=== PATIENT | male | born 1990 | race African-American/Black ===

== ENCOUNTER 2020-01-18 13:53 | Emergency (ER) | payer OTHER ==
[~2020-01-18] VITALS: Ht 182.9 cm; Wt 85.0 kg
[2020-01-18 14:11] VITALS: BP 137/89
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
--- NOTE | 2020-01-18 14:54 | RAD ---
Three-view left shoulder dated 01/18/2020. No comparison available. CLINICAL INDICATION: Pain after injury. Findin views left shoulder show normal bony alignment. No displaced fracture. No acute osseous or articular abnormality. No periostitis or bone destruction. IMPRESSION: No acute findings. Electronically signed by: Telly Dunbar MD (01/18/2020 2:52 PM) [id number]
[2020-01-18] MEDS ORDERED: METH-38 PO (15:05)
[2020-01-18] MEDS ORDERED: IBUP-1007 PO (15:05)
== END 2020-01-18 15:22 | disposition home or self-care (01) ==
LOC: ER 13:53
DX: S46.812A Strain of other muscles, fascia and tendons at shoulder and upper arm level, left arm, initial encounter (principal); F17.200 Nicotine dependence, unspecified, uncomplicated; V49.9XXA Car occupant (driver) (passenger) injured in unspecified traffic accident, initial encounter; Y93.89 Activity, other specified; Y92.413 State road as the place of occurrence of the external cause; Y99.8 Other external cause status
CPT/HCPCS: 73030; 99283